=== PATIENT | male | born 1995 ===

== ENCOUNTER 2020-02-23 14:09 | Observation (INO) | payer OTHER, MEDICAID, SELFPAY ==
[2020-02-23] VITALS (42 sets, daily range): BP systolic 101–155; BP diastolic 54–99; PULSE 83–121; RESP 12–31; TEMP 36.3–36.7; O2SAT 89–100; BMI 29.8
--- NOTE | 2020-02-23 14:16 | ED_ITS ---
HPI - Syncope General Chief Complaint: Toxicology Problem Stated Complaint: Passed out Time Seen by Provider: 02/23/20 14:16 History of Present Illness HPI narrative: CC: Found unresponsive and unconscious. HPI: The patient is a 24-year-old male who was brought in by EMS after he was found unconscious and unresponsive. The patient woke up and was mildly cooperative after being administered Narcan. In the emergency department the patient was very guarded would not say exactly what he was on. He told the nurse that he was on and taking cocaine. He was told that cocaine does not respond to Narcan but would not state what else he was on. The patient is uncooperative. The patient then became somnolent and obtunded and would not answer any further questions. The patient is being treated for an acute toxic overdose of Street medications. The patient admitted to the nurse that he uses cocaine. Additional in for higuera from the paramedics is that the patient was locked in the back of a car. In order to get to the patient and get the patient out of the car they had to break the door off the car because the doors would not open. After the doors were removed the patient was administered 3 mg of Narcan intranasally which place the patient in a semi aroused condition. All of this occurred in a parking lot at 1 of the [facility]. Related Data Home Medications Medication Instructions Recorded Confirmed No Known Home Medications 02/23/20 02/23/20 Allergies Allergy/AdvReac Type Severity Reaction Status Date / Time No Known Drug Allergies Allergy Verified 02/23/20 14:19 Review of Systems Review of Systems Narrative: Because of the patient's current condition and drugs states the patient is unable to provide any review of systems at this time. Patient History Social History Smoking Status: Current every day smoker Exam Narrative Exam Narrative: PHYSICAL EXAM: CONSTITUTIONAL: The patient is obtunded and only responds to noxious stimuli when administered Narcan. HEAD: AT/NC EENT: miotic and pinpoint, conjunctiva are injected. NOSE:No epistaxis or nasal drainage MOUTH:Does not follow directions and open her mouth. NECK: Supple, no obvious JVD, Trachea is midline without stridor, no palpable LN. THORAX: No deformity, retractions, chest wall tenderness. LUNGS: Inspiratory crackles with diffuse expiratory rhonchi no wheeze HEART: Regular rhythm without mumur. ABDOMEN: Soft, non-tender, no guarding , rebound, rigidity or palpable mass. EXTREMITIES: No edema, deformity, tenderness or cyanosis. SKIN: No rash, bruising, petechiae or purpura. NEURO: The patient is a ton did and responds only to noxious stimuli. He moves all 4 extremities. Cranial nerves appear to be symmetrical with no focal facial asymmetry. Initial Vital Signs Initial Vital Signs: Vital Signs Temperature 98.1 F 02/23/20 14:10 Pulse Rate 118 H 02/23/20 14:10 Respiratory Rate 20 02/23/20 14:10 Blood Pressure 149/95 H 02/23/20 14:10 Pulse Oximetry 94 02/23/20 14:10 Course Course Course Narrative: 1749: The patient continues to be somnolent. Will recheck the patient's arterial blood gases and I will call the hospitalist to get the patient admitted observation status. 1810: Patient continues to be very somnolent but arousable is not waking up. The patient's chest x-ray revealed; IMPRESSION: Limited portable chest examination, without a significant cardiopulmonary abnormality identified. -- the patient's CT of his head revealed: IMPRESSION: Normal noncontrast head CT. Dictated by: Rakesh Max M.D. on 02/23/2020 at 15:18 Approved by: Rakesh Max M.D. on 02/23/2020 at 15:18 The patient's repeat arterial blood gases revealed a pH is 7.296 a pCO2 of 56.9 a PO2 of 81 and an oxygen saturation 94%. 1848: The patient is waking up but is not coherent. He does not answer the questions. He knows that he is at the [facility] but does not know what happen or is refusing to tell us. He states that he was just taking Xanax. He has not provided us with a urine to evaluate for the drugs that he has taken. He speaks with a slurred speech. Orders Ordered: ED Orders 02/23/20 14:13 Acetaminophen Stat Complete Blood Count AUTO DIFF Stat Comprehensive Metabolic Panel Stat Ethanol (ETOH) Stat Magnesium Stat Salicylate Stat Thyroid Stimulating Hormone Stat Troponin & CK Cardiac Panel Stat 02/23/20 14:17 EKG-12 Lead Stat 02/23/20 14:21 XR chest 1V Stat 02/23/20 14:22 CT head/brain wo con Stat 02/23/20 14:35 Arterial Blood Gas Stat 02/23/20 18:01 Arterial Blood Gas Stat 02/23/20 18:58 Urinalysis and Microscopic Stat Urine Drug Screen, Rapid Stat Naloxone HCl 2 mg/ Sodium (Chloride) 500 mls @ 62.5 mls/hr IV TITRATE YAJAIRA; Prot ocol Last Titration: 02/23/20 17:41 Dose: 0.29 mg/hr, 72 mls/hr Documented by: Titration: 02/23/20 15:23 Dose: 0.28 mg/hr, 70 mls/hr Documented by: Admin: 02/23/20 15:04 Dose: 0.25 mg/hr, 62.5 mls/hr Documented by: YOVANI Sodium Chloride (Normal Saline 0.9%) 1,000 mls @ 150 mls/hr IV CONT YAJAIRA Sodium Chloride (Normal Saline 0.9%) 1,000 mls @ 1,000 mls/hr IV BOLUS ONE Stop: 02/23/20 20:02 Last Admin: 02/23/20 19:04 Dose: 1,000 mls/hr Documented by: YOVANI Discontinued Medications Sodium Chloride (Normal Saline 0.9%) 1,000 mls @ 1,000 mls/hr IV BOLUS ONE Stop: 02/23/20 15:16 Last Infusion: 02/23/20 17:41 Dose: 0 mls/hr Documented by: Admin: 02/23/20 15:05 Dose: 1,000 mls/hr Documented by: YOVANI Naloxone HCl (Narcan) 1 mg IV NOW ONE Stop: 02/23/20 14:27 Last Admin: 02/23/20 15:38 Dose: Not Given Documented by: RAYMON Vital Signs Vital signs: Vital Signs - 8 hr 02/23/20 14:10 02/23/20 14:31 02/23/20 14:45 Temperature 98.1 F Pulse Rate 118 H 99 H 107 H Respiratory Rate 20 26 H Blood Pressure 149/95 H 121/79 Pulse Oximetry 94 89 L 100 02/23/20 15:00 02/23/20 15:15 02/23/20 15:30 Temperature Pulse Rate 96 H 96 H 89 Respiratory Rate Blood Pressure 117/60 112/57 L 112/55 L Pulse Oximetry 95 95 95 02/23/20 15:45 02/23/20 16:09 02/23/20 16:15 Temperature Pulse Rate 95 H 83 94 H Respiratory Rate 12 Blood Pressure 109/59 L Pulse Oximetry 93 100 93 02/23/20 16:30 02/23/20 16:45 02/23/20 17:00 Temperature Pulse Rate 93 H 95 H 97 H Respiratory Rate 18 Blood Pressure Pulse Oximetry 92 91 02/23/20 17:15 02/23/20 17:24 02/23/20 17:30 Temperature Pulse Rate 97 H 97 H 98 H Respiratory Rate Blood Pressure 104/55 L 112/55 L Pulse Oximetry 92 93 93 02/23/20 17:45 02/23/20 18:00 02/23/20 18:15 Temperature Pulse Rate 97 H 109 H 97 H Respiratory Rate Blood Pressure 112/56 L 101/54 L 121/72 Pulse Oximetry 94 92 97 02/23/20 18:30 02/23/20 18:45 02/23/20 19:00 Temperature Pulse Rate 94 H 99 H 99 H Respiratory Rate 18 18 Blood Pressure 128/86 128/71 148/74 H Pulse Oximetry 99 98 98 MDM - Syncope Medical Records Attestation: I reviewed the patient's medical records. Lab Data Attestation: I reviewed the patient's lab results. Result diagrams: 02/23/20 14:13 02/23/20 14:13 Labs: Lab Results 02/23/20 02/23/20 02/23/20 Range/Units 14:13 14:13 14:13 WBC 10.4 (4.5-11.0) X10^3/uL RBC 5.27 (4.5-5.9) X10^6/uL Hgb 17.1 (13.5-17.5) g/dL Hct 49.8 (41-53) % MCV 94.6 (80-100) fL MCH 32.4 (26-34) PG MCHC 34.3 (30-36) % RDW 13.1 (11.6-14.8) % Plt Count 187 (150-400) X10^3/uL Neut % (Auto) 60.7 (50-75) % Lymph % (Auto) 27.6 (25-40) % [place] % (Auto) 7.4 (3-14) % Eos % (Auto) 3.8 (2-4) % Baso % (Auto) 0.5 (0-2) % Neut # (Auto) 6300 (0081-0682) /uL Lymph # (Auto) 2900 (8430-2828) /uL [place] # (Auto) 800 (0-900) /uL Eos # (Auto) 400 (0-450) /uL Baso # (Auto) 100 (0-100) /uL ABG pH (7.35-7.45) ABG pCO2 (35-45) mmHg ABG pO2 (80-100) mmHg ABG HCO3 (22-26) mmol/L ABG Total CO2 (21-31) mmol/L ABG O2 Saturation (95-100) % ABG Base Excess (-2-2) mmol/L FiO2 Sodium 138 (137-145) mmol/L Potassium 4.3 (3.4-5.1) mmol/L Chloride 104 (98-107) mmol/L Carbon Dioxide 24 (22-32) mmol/L BUN 15 (9-20) mg/dL Creatinine 0.79 (0.66-1.25) mg/dL Estimated GFR > 60.0 (>60) mL/min BUN/Creatinine Ratio 19.0 (6-22) Glucose 111 H (70-100) mg/dL Calcium 9.9 (8.4-10.2) mg/dL Magnesium 2.2 (1.6-2.3) mg/dL Total Bilirubin 0.8 (0.2-1.3) mg/dL AST 38 (17-59) IU/L ALT 34 (<50) IU/L Alkaline Phosphatase 59 (38-126) U/L Total Creatine Kinase 109 (55-170) U/L CK-MB (CK-2) 1.75 (<2.37) ng/mL CK-MB (CK-2) Rel Index 1.6 (1.5-5.0) % Troponin I < 0.012 (0.01-0.034) ng/mL Total Protein 7.9 (6.3-8.2) g/dL Albumin 4.7 (3.5-5.0) g/dL Globulin 3.2 (1.7-4.1) g/dL Albumin/Globulin Ratio 1.5 (1.0-2.8) TSH 4.65 (0.47-4.68) uIU/mL Urine Color Urine Appearance Urine pH (4.5-8.0) Ur Specific [place] (1.000-1.035) Urine Protein (Negative) Urine Glucose (UA) (Negative) g/dL Urine Ketones (NEGATIVE) Urine Occult Blood (Negative) Urine Nitrate (Negative) Urine Bilirubin (NEGATIVE) Urine Urobilinogen (0.2) E.U./dL Ur Leukocyte Esterase (NEGATIVE) Urine RBC (0-5/HPF) Urine WBC (0-5/HPF) Urine Bacteria (None) Hyaline Casts (None) Ur Culture Indicated? Salicylates < 1.0 (<20) mg/dL U Opiates 300ng/mL cut (Negative) Ur Oxycodone Screen (Negative) Urine Methadone Screen (Negative) Acetaminophen < 10 L (10-30) ug/mL Ur Barbiturates Screen (Negative) U Tricyclic Antidepress (Negative) Ur Phencyclidine Scrn (Negative) Ur Amphetamines Screen (Negative) U Methamphetamines Scrn (Negative) Ur MDMA Scrn (Ecstasy) (Negative) U Benzodiazepines Scrn (Negative) Urine Cocaine Screen (Negative) U Marijuana (THC) Screen (Negative) Ethyl Alcohol < 10 ( - 10) mg/dL 02/23/20 02/23/20 02/23/20 Range/Units 14:35 18:01 18:58 WBC (4.5-11.0) X10^3/uL RBC (4.5-5.9) X10^6/uL Hgb (13.5-17.5) g/dL Hct (41-53) % MCV (80-100) fL MCH (26-34) PG MCHC (30-36) % RDW (11.6-14.8) % Plt Count (150-400) X10^3/uL Neut % (Auto) (50-75) % Lymph % (Auto) (25-40) % [place] % (Auto) (3-14) % Eos % (Auto) (2-4) % Baso % (Auto) (0-2) % Neut # (Auto) (7929-6496) /uL Lymph # (Auto) (7696-9203) /uL [place] # (Auto) (0-900) /uL Eos # (Auto) (0-450) /uL Baso # (Auto) (0-100) /uL ABG pH 7.29 L* 7.30 L (7.35-7.45) ABG pCO2 58.3 H 56.9 H (35-45) mmHg ABG pO2 80 81 (80-100) mmHg ABG HCO3 28 H 28 H (22-26) mmol/L ABG Total CO2 30 29 (21-31) mmol/L ABG O2 Saturation 94 L 94 L (95-100) % ABG Base Excess 2.0 1.0 (-2-2) mmol/L FiO2 21 21 Sodium (137-145) mmol/L Potassium (3.4-5.1) mmol/L Chloride (98-107) mmol/L Carbon Dioxide (22-32) mmol/L BUN (9-20) mg/dL Creatinine (0.66-1.25) mg/dL Estimated GFR (>60) mL/min BUN/Creatinine Ratio (6-22) Glucose (70-100) mg/dL Calcium (8.4-10.2) mg/dL Magnesium (1.6-2.3) mg/dL Total Bilirubin (0.2-1.3) mg/dL AST (17-59) IU/L ALT (<50) IU/L Alkaline Phosphatase (38-126) U/L Total Creatine Kinase (55-170) U/L CK-MB (CK-2) (<2.37) ng/mL CK-MB (CK-2) Rel Index (1.5-5.0) % Troponin I (0.01-0.034) ng/mL Total Protein (6.3-8.2) g/dL Albumin (3.5-5.0) g/dL Globulin (1.7-4.1) g/dL Albumin/Globulin Ratio (1.0-2.8) TSH (0.47-4.68) uIU/mL Urine Color Yellow Urine Appearance Clear Urine pH 6.0 (4.5-8.0) Ur Specific [place] 1.025 (1.000-1.035) Urine Protein 1+ H (Negative) Urine Glucose (UA) Negative (Negative) g/dL Urine Ketones Negative (NEGATIVE) Urine Occult Blood Negative (Negative) Urine Nitrate Negative (Negative) Urine Bilirubin Negative (NEGATIVE) Urine Urobilinogen 2.0 H (0.2) E.U./dL Ur Leukocyte Esterase Negative (NEGATIVE) Urine RBC None seen (0-5/HPF) Urine WBC None seen (0-5/HPF) Urine Bacteria None seen (None) Hyaline Casts 0-1/lpf (None) Ur Culture Indicated? Cult not indicated Salicylates (<20) mg/dL U Opiates 300ng/mL cut (Negative) Ur Oxycodone Screen (Negative) Urine Methadone Screen (Negative) Acetaminophen (10-30) ug/mL Ur Barbiturates Screen (Negative) U Tricyclic Antidepress (Negative) Ur Phencyclidine Scrn (Negative) Ur Amphetamines Screen (Negative) U Methamphetamines Scrn (Negative) Ur MDMA Scrn (Ecstasy) (Negative) U Benzodiazepines Scrn (Negative) Urine Cocaine Screen (Negative) U Marijuana (THC) Screen (Negative) Ethyl Alcohol ( - 10) mg/dL 02/23/20 Range/Units 18:58 WBC (4.5-11.0) X10^3/uL RBC (4.5-5.9) X10^6/uL Hgb (13.5-17.5) g/dL Hct (41-53) % MCV (80-100) fL MCH (26-34) PG MCHC (30-36) % RDW (11.6-14.8) % Plt Count (150-400) X10^3/uL Neut % (Auto) (50-75) % Lymph % (Auto) (25-40) % [place] % (Auto) (3-14) % Eos % (Auto) (2-4) % Baso % (Auto) (0-2) % Neut # (Auto) (7782-1708) /uL Lymph # (Auto) (5607-2717) /uL [place] # (Auto) (0-900) /uL Eos # (Auto) (0-450) /uL Baso # (Auto) (0-100) /uL ABG pH (7.35-7.45) ABG pCO2 (35-45) mmHg ABG pO2 (80-100) mmHg ABG HCO3 (22-26) mmol/L ABG Total CO2 (21-31) mmol/L ABG O2 Saturation (95-100) % ABG Base Excess (-2-2) mmol/L FiO2 Sodium (137-145) mmol/L Potassium (3.4-5.1) mmol/L Chloride (98-107) mmol/L Carbon Dioxide (22-32) mmol/L BUN (9-20) mg/dL Creatinine (0.66-1.25) mg/dL Estimated GFR (>60) mL/min BUN/Creatinine Ratio (6-22) Glucose (70-100) mg/dL Calcium (8.4-10.2) mg/dL Magnesium (1.6-2.3) mg/dL Total Bilirubin (0.2-1.3) mg/dL AST (17-59) IU/L ALT (<50) IU/L Alkaline Phosphatase (38-126) U/L Total Creatine Kinase (55-170) U/L CK-MB (CK-2) (<2.37) ng/mL CK-MB (CK-2) Rel Index (1.5-5.0) % Troponin I (0.01-0.034) ng/mL Total Protein (6.3-8.2) g/dL Albumin (3.5-5.0) g/dL Globulin (1.7-4.1) g/dL Albumin/Globulin Ratio (1.0-2.8) TSH (0.47-4.68) uIU/mL Urine Color Urine Appearance Urine pH (4.5-8.0) Ur Specific [place] (1.000-1.035) Urine Protein (Negative) Urine Glucose (UA) (Negative) g/dL Urine Ketones (NEGATIVE) Urine Occult Blood (Negative) Urine Nitrate (Negative) Urine Bilirubin (NEGATIVE) Urine Urobilinogen (0.2) E.U./dL Ur Leukocyte Esterase (NEGATIVE) Urine RBC (0-5/HPF) Urine WBC (0-5/HPF) Urine Bacteria (None) Hyaline Casts (None) Ur Culture Indicated? Salicylates (<20) mg/dL U Opiates 300ng/mL cut Negative (Negative) Ur Oxycodone Screen Negative (Negative) Urine Methadone Screen Negative (Negative) Acetaminophen (10-30) ug/mL Ur Barbiturates Screen Negative (Negative) U Tricyclic Antidepress Negative (Negative) Ur Phencyclidine Scrn Negative (Negative) Ur Amphetamines Screen Positive H (Negative) U Methamphetamines Scrn Positive H (Negative) Ur MDMA Scrn (Ecstasy) Positive H (Negative) U Benzodiazepines Scrn Positive H (Negative) Urine Cocaine Screen Positive H (Negative) U Marijuana (THC) Screen Positive H (Negative) Ethyl Alcohol ( - 10) mg/dL ABG Data ABG results: The patient's arterial blood gases on room air revealed a pH is 7.29 to a pCO2 of 58.3 a PO2 of 80 and a bicarb of 28.1 total CO2 of 30. Sodium 137 potassium 3.9. The patient will be placed on a pCO2 monitor. Attestation: I personally reviewed and interpreted this ABG as follows: ECG Data Attestation: I personally reviewed and interpreted this ECG as follows: Interpretation: Patient's EKG obtained at 2:40 p.m. revealed a sinus tachycardia with a ventricular rate of 104. His intervals appear within normal limits p.r. interval is 160 milliseconds. QRS duration is 88 milliseconds. QTC is 441 milliseconds. [place] is normal. The patient has been prominent T-waves with early repolarization in leads V3 V4 V5 and V6. The patient's T-waves are upright in V1 inverted in lead III. There are no other acute diagnostic ST segment changes noted. Discharge Plan Departure Patient Disposition: Admitted as Observation Clinical Impression: Polysubstance abuse Altered mental status Qualifiers: Altered mental status type: delirium Qualified Code(s): R41.0 - Disorientation, unspecified Opiate dependence Qualifiers: Substance use status: with unspecified opioid-induced disorder Qualified Code(s): F11.29 - Opioid dependence with unspecified opioid-induced disorder Admit Date/Time: 02/23/20 19:39 Admit Provider: Heath Thibodeaux
--- NOTE | 2020-02-23 14:21 | DI.RAD.S_ITS ---
PROCEDURE: XR CHEST 1V INDICATIONS: obtunded, suspected drug OD r/o aspiration TECHNIQUE: One view of the chest was acquired. COMPARISON: None. FINDINGS: Surgical changes and devices: None. Lungs and pleura: An incomplete inspiratory result is noted, causing a crowded appearance to the lung markings. No focal infiltrates are seen. No pneumothorax or significant pleural effusions are seen. Mediastinum: Mediastinal contours appear normal. Heart size is normal. Bones and chest wall: No suspicious bony lesions. Overlying soft tissues appear unremarkable. IMPRESSION: Limited portable chest examination, without a significant cardiopulmonary abnormality identified. Dictated by: Rakesh Max M.D. on 02/23/2020 at 14:57 Approved by: Rakesh Max M.D. on 02/23/2020 at 14:57
--- NOTE | 2020-02-23 14:22 | DI.CT.S_ITS ---
PROCEDURE: CT HEAD/BRAIN WO CON INDICATIONS: suspected drug OD, obtunded, TECHNIQUE: Noncontrast 4.5 mm thick angled axial sections acquired from the foramen magnum to the vertex, with coronal and sagittal reformats. For radiation dose reduction, the following was used: automated exposure control, adjustment of mA and/or kV according to patient size. COMPARISON: [facility], , XR CHEST 1V, 02/23/2020, 15:30. FINDINGS: Image quality: Excellent. CSF spaces: Basal cisterns are patent. No extra-axial fluid collections. Ventricles are normal in size and shape. Brain: No midline shift. No intracranial masses or hemorrhage. [place]-white matter interface is normal. Skull and face: Calvarium and visualized facial bones are intact, without suspicious lesions. Sinuses: Visualized sinuses and mastoids are clear. IMPRESSION: Normal noncontrast head CT. Dictated by: Rakesh Max M.D. on 02/23/2020 at 15:18 Approved by: Rakesh Max M.D. on 02/23/2020 at 15:18
[2020-02-23] MEDS: NALOXONE 1 MG/ML SYRINGE 2 MG (14:28)
[2020-02-23 14:30] LABS: Add Manual Diff / Slide Review NO; Basophils Absolute Auto 100 /uL (0-100); Basophils Percent Auto 0.5 % (0-2); Eosinophils Absolute Auto 400 /uL (0-450); Eosinophils Percent Auto 3.8 % (2-4); Hematocrit 49.8 % (41-53); Hemoglobin 17.1 g/dL (13.5-17.5); Lymphocytes Absolute Auto 2900 /uL (1100-4500); Lymphocytes Percent Auto 27.6 % (25-40); Mean Corpuscular HGB Conc 34.3 % (30-36); Mean Corpuscular Hemoglobin 32.4 PG (26-34); Mean Corpuscular Volume 94.6 fL (80-100); Monocytes Absolute Auto 800 /uL (0-900); Monocytes Percent Auto 7.4 % (3-14); Neutrophils Absolute Auto 6300 /uL (1500-7000); Neutrophils Percent Auto 60.7 % (50-75); Platelet Count 187 X10^3/uL (150-400); Red Blood Cell Count 5.27 X10^6/uL (4.5-5.9); Red Cell Distribution Width 13.1 % (11.6-14.8); White Blood Cell Count 10.4 X10^3/uL (4.5-11.0)
[2020-02-23 14:37] LABS: Acetaminophen < 10 ug/mL (10-30); Alanine Aminotransferase 34 IU/L (<50); Albumin 4.7 g/dL (3.5-5.0); Albumin Globulin Ratio 1.5 (1.0-2.8); Alkaline Phosphatase 59 U/L (38-126); Aspartate Aminotransferase 38 IU/L (17-59); Bilirubin Total 0.8 mg/dL (0.2-1.3); Blood Urea Nitrogen 15 mg/dL (9-20); Calcium 9.9 mg/dL (8.4-10.2); Carbon Dioxide 24 mmol/L (22-32); Chloride 104 mmol/L (98-107); Creatine Kinase 109 U/L (55-170); Estimated Glomerular Filt Rate > 60.0 mL/min (>60); Ethanol (ETOH) < 10 mg/dL; Globulin 3.2 g/dL (1.7-4.1); Glucose 111 mg/dL (70-100); HEMOLYSIS 42 (0-50); Magnesium 2.2 mg/dL (1.6-2.3); Potassium 4.3 mmol/L (3.4-5.1); Salicylate < 1.0 mg/dL (<20); Sodium 138 mmol/L (137-145); Total Protein 7.9 g/dL (6.3-8.2)
[2020-02-23 14:48] LABS: Troponin I < 0.012 ng/mL (0.01-0.034)
[2020-02-23 14:50] LABS: Fractionated Inspired Oxygen 21; HCO3 ABG 28 mmol/L (22-26); Oxygen Saturation ABG 94 % (95-100); PCO2 ABG 58.3 mmHg (35-45); PO2 ABG 80 mmHg (80-100); TCO2 ABG 30 mmol/L (21-31); pH ABG 7.29 (7.35-7.45)
[2020-02-23 14:51] LABS: CKMB % Relative Index 1.6 % (1.5-5.0); Creatine Kinase MB 1.75 ng/mL (<2.37)
[2020-02-23] MEDS: NALOXONE 2 MG in SODIUM CHLORIDE 0.9% 500 ML 62.5 ML IV ×2 (15:04→20:30)
[2020-02-23] MEDS: SODIUM CHLORIDE 0.9% 1,000 ML 1000 ML IV ×2 (15:05→19:04)
[2020-02-23 15:07] LABS: Thyroid Stimulating Hormone 4.65 uIU/mL (0.47-4.68)
--- NOTE | 2020-02-23 15:24 | PC.NURSE ---
Increased narcan to 70mL per Dr. Villeda Patient remains on all monitors including capnography
--- NOTE | 2020-02-23 16:20 | PC.NURSE ---
Patient aware of need for urine sample. Mom on the phone wanting information. Patient gives verbal consent to tell her that he is okay. I did update her. She says she wants to come in.
--- NOTE | 2020-02-23 17:11 | PC.NURSE ---
Attempt to get urine. Patient sleeping hard. Respirations even and unlabored. Appears in no acute distress. Monitors all remain in place with capnography.
[2020-02-23 18:13] LABS: Fractionated Inspired Oxygen 21; HCO3 ABG 28 mmol/L (22-26); Oxygen Saturation ABG 94 % (95-100); PCO2 ABG 56.9 mmHg (35-45); PO2 ABG 81 mmHg (80-100); TCO2 ABG 29 mmol/L (21-31)
[2020-02-23 19:18] LABS: Bacteria Urine None Seen; RBC Urine None Seen (0-5/HPF); WBC Urine None Seen (0-5/HPF)
[2020-02-23 19:22] LABS: Appearance Urine UA CLEAR; Bilirubin Urine UA NEGATIVE (NEGATIVE); Color Urine UA YELLOW; Glucose Urine UA NEGATIVE (Negative); Ketones Urine UA NEGATIVE (NEGATIVE); Leukocyte Esterase Urine UA NEGATIVE (NEGATIVE); Nitrite Urine UA NEGATIVE (Negative); Occult Blood Urine UA NEGATIVE (Negative); Protein Urine UA 1+ (Negative); Specific Gravity Urine UA 1.025 (1.000-1.035)
[2020-02-23 19:25] LABS: UR Morphine/Opiate cutoff 300 Negative (Negative); Ur Creatinine Normal (Normal); Ur Specific Gravity Normal (Normal); Urine Amphetamines Positive (Negative); Urine Barbiturates Negative (Negative); Urine Benzodiazepines Positive (Negative); Urine Cocaine Positive (Negative); Urine MDMA Positive (Negative); Urine Methadone Negative (Negative); Urine Methamphetamines Positive (Negative); Urine Oxycodone Negative (Negative); Urine Phencyclidine Negative (Negative); Urine Tetrahydrocannabinol Positive (Negative); Urine Tricyclic Antidepressant Negative (Negative); Urine pH Normal (Normal)
[2020-02-23 19:31] LABS: Culture Indicated Urine Cult Not Indicated; Hyaline Casts Urine 0-1/LPF
[2020-02-23 22:13] LABS: COVID19 -Nasal RAPID Negative (Negative)
[2020-02-23] MEDS: SODIUM CHLORIDE 0.9% 1,000 ML 125 ML IV (22:37)
[2020-02-23] MEDS: HEPARIN 5,000 UNIT/ML VIAL 5000 UNIT SUBCUT (22:41)
--- NOTE | 2020-02-23 23:30 | PM.HP.1 ---
History of Present Illness History of Present Illness Date Patient Seen: 02/23/20 Time Patient Seen: 21:20 Chief complaint: Passed out Narrative: Mr. Josafat Juares is a 24-year-old male patient with a past medical history of asthma for presents to the ER via EMS after being found unresponsive and unconscious in his vehicle. The patient had to be extricated from his vehicle by fire personnel. The patient was administered nasal Narcan 3 mg total with modest arousal with patient. In the ER the patient was uncooperative with history and is reluctant to disclose what substances he took. At time of encounter on the acute care floor the patient is presently on our can drip and is awake and conversant. His mother is at bedside and asked to speak with the patient privately. The patient discloses that he has been taking multiple recreational pharmaceuticals for 2 days. He describes he started drinking alcohol and that led to ?things getting out of hand.? He states remembering a few things urine there over the last 2 days. He provides a history of prior drug use per reports his last episode was 4 years ago. He denies any thoughts of self-harm or intent on self injury. He denies any recent illness, fevers or chills, known COVID-19 exposures. Denies complaints of headache or dizziness, nasal congestion or sore throat. He has no chest pain and relates history of intermittent right-sided sharp chest pain lasting a few minutes but nothing currently. He does endorse a history of asthma I received prescription for an inhaler from a [facility] and has no regular PCP. He reports using inhaler approximately 3 times per week. He denies current complaints of shortness of breath cough and has no wheezing. He denies epigastric pain, abdominal pain, nausea or vomiting. Cannot recall his last bowel movement. He reports no difficulty urinating. The patient is typically independent in all ADLs. Upon arrival to the ER the patient is afebrile with temperature 98.1?, heart rate of 118, blood pressure 149/95, respiratory rate of 20 with his known oxygen saturation 94% on room air. Chest x-ray was obtained which is unremarkable with no acute cardiopulmonary pathology, a head CT which is also unremarkable. On laboratory analysis the patient has white count of 10.4, hemoglobin of 17.1, hematocrit of 49.8 and platelets of 187. His electrolytes are all within normal limits is a magnesium 2.2. His BUN is 15 and creatinine 0.79. Liver function tests are all within normal limits, his total CK is 109, troponin is negative, TSH is 4.65. Of ABG reveals a pH of 7.30, pCO2 of 56.9, bicarbonate of 28 with base excess of +1. Urinalysis is positive for 1+ protein and negative for ketones nitrates leukocyte esterase or WBCs. On urinary tox screen the patient is found positive for amphetamine/methamphetamine, ecstasy, benzodiazepines, cocaine, THC. Alcohol is less than 10. In the ER the patient is given normal saline 2 L and administered initial dose of Narcan with transient improvement insert on Narcan infusion. The patient is admitted to the medicine service for toxic encephalopathy with acute respiratory failure. Patient History Medical History Mild persistent asthma (Acute) Substance abuse (Acute) Surgical History No significant past surgical history (Acute) Family & Social History Family history unavailable: No (Patient is unable or unwilling to provide social or family history) Social History: household members family Prior Living Arrangements House Safety & Behavioral: Feels Safe in Current Yes Environment Been Physically Hurt or No Threatened By a Person Suicidal Ideation Description None Suicide Plan Description No Plan Tobacco & Substance use: Tobacco type cigarettes,cannabis/marijuana Smoking Status Current every day smoker Smoking packs per day 0.5 alcohol intake current alcohol intake frequency a few times a week Substance Use Type marijuana,crack/cocaine,sedatives Meds Home Medications and Allergies Home Medications Medication Instructions Recorded Confirmed Type albuterol sulfate 2 puff INHALATION Q4-6H PRN 02/24/20 02/24/20 History Allergies Allergy/AdvReac Type Severity Reaction Status Date / Time No Known Drug Allergies Allergy Verified 02/23/20 14:19 Review of Systems Review of Systems ROS: Yes All systems reviewed with the patient and are negative except as otherwise documented Exam Vital Signs (past 8 hours): - 02/23/20 15:45 02/23/20 16:09 02/23/20 16:15 Temperature Pulse Rate 95 H 83 94 H Respiratory Rate 12 Blood Pressure 109/59 L Pulse Oximetry 93 100 93 02/23/20 16:30 02/23/20 16:45 02/23/20 17:00 Temperature Pulse Rate 93 H 95 H 97 H Respiratory Rate 18 Blood Pressure Pulse Oximetry 92 91 02/23/20 17:15 02/23/20 17:24 02/23/20 17:30 Temperature Pulse Rate 97 H 97 H 98 H Respiratory Rate Blood Pressure 104/55 L 112/55 L Pulse Oximetry 92 93 93 02/23/20 17:45 02/23/20 18:00 02/23/20 18:15 Temperature Pulse Rate 97 H 109 H 97 H Respiratory Rate Blood Pressure 112/56 L 101/54 L 121/72 Pulse Oximetry 94 92 97 02/23/20 18:30 02/23/20 18:45 02/23/20 19:00 Temperature Pulse Rate 94 H 99 H 99 H Respiratory Rate 18 18 Blood Pressure 128/86 128/71 148/74 H Pulse Oximetry 99 98 98 02/23/20 19:15 02/23/20 19:30 02/23/20 19:31 Temperature Pulse Rate 102 H 103 H 106 H Respiratory Rate Blood Pressure 149/73 H 142/69 H Pulse Oximetry 99 99 99 02/23/20 19:45 02/23/20 19:46 02/23/20 20:00 Temperature Pulse Rate 102 H 106 H 118 H Respiratory Rate Blood Pressure 155/93 H 142/88 H Pulse Oximetry 99 99 100 02/23/20 20:15 02/23/20 20:18 02/23/20 20:30 Temperature 97.3 F L Pulse Rate 108 H 115 H 121 H Respiratory Rate 24 Blood Pressure 141/87 H 134/99 H 148/78 H Pulse Oximetry 99 99 99 02/23/20 20:58 02/23/20 21:00 02/23/20 21:15 Temperature Pulse Rate 109 H 108 H 108 H Respiratory Rate 24 Blood Pressure Pulse Oximetry 98 99 98 02/23/20 21:30 02/23/20 21:40 02/23/20 21:45 Temperature Pulse Rate 109 H 108 H 108 H Respiratory Rate 28 H 20 25 H Blood Pressure Pulse Oximetry 99 98 99 02/23/20 22:00 02/23/20 22:15 02/23/20 22:30 Temperature Pulse Rate 108 H 111 H 88 Respiratory Rate 22 25 H 21 Blood Pressure Pulse Oximetry 97 95 97 02/23/20 22:45 02/23/20 23:00 02/23/20 23:15 Temperature Pulse Rate 97 H 103 H 109 H Respiratory Rate 27 H 27 H 31 H Blood Pressure Pulse Oximetry 98 98 98 Oxygen Delivery Method Room Air Oxygen Flow Rate 0 Narrative Exam Narrative: GENERAL APPEARANCE: well developed, well nourished, restless, mild dyskinesia HEENT: Atraumatic, pupils sluggish, conjunctiva clear, EOMs intact, no sinus tenderness to percussion, no rhinorrhea, mucous membranes are moist and pink without lesions or exudate. NECK/THYROID: neck supple, no JVD, no carotid bruit, no thyromegaly, trachea midline. LYMPH NODES: no cervical or supraclavicular lymphadenopathy. SKIN: [place], warm and dry, no visible lesions, rashes, ulcerations or petechiae. HEART: regular rate and rhythm, S1-S2, no murmur, no rubs or gallops, brisk capillary refill, no edema LUNGS: clear to auscultation bilaterally, no coarseness crackles or wheezing, no cough present CHEST: Symmetrical movement, no accessory muscle use, good tidal volume. ABDOMEN: Soft, no distention, no abdominal tenderness, no guarding or peritoneal signs, no organomegaly, no flank or suprapubic tenderness, active bowel tones. BACK: Normal curvature, nontender to palpation, no CVA tenderness on percussion EXTREMITIES: moves all extremities, strength is 5/5 and symmetrical, no deformities or joint effusions. NEUROLOGIC: AAO x person place and time, slurred speech, mild dyskinesia without focal motor deficits or lateralizing symptoms, sensation intact to light touch, hearing grossly normal to speech. PSYCH: Mildly restless, animated, cooperative. Objective Labs Result Diagrams: 02/23/20 14:13 02/23/20 14:13 Labs: Laboratory Results - last 24 hr 02/23/20 02/23/20 02/23/20 14:13 14:13 14:13 WBC 10.4 RBC 5.27 Hgb 17.1 Hct 49.8 MCV 94.6 MCH 32.4 MCHC 34.3 RDW 13.1 Plt Count 187 Neut % (Auto) 60.7 Lymph % (Auto) 27.6 [place] % (Auto) 7.4 Eos % (Auto) 3.8 Baso % (Auto) 0.5 Neut # (Auto) 6300 Lymph # (Auto) 2900 [place] # (Auto) 800 Eos # (Auto) 400 Baso # (Auto) 100 ABG pH ABG pCO2 ABG pO2 ABG HCO3 ABG Total CO2 ABG O2 Saturation ABG Base Excess FiO2 Sodium 138 Potassium 4.3 Chloride 104 Carbon Dioxide 24 BUN 15 Creatinine 0.79 Estimated GFR > 60.0 BUN/Creatinine Ratio 19.0 Glucose 111 H Calcium 9.9 Magnesium 2.2 Total Bilirubin 0.8 AST 38 ALT 34 Alkaline Phosphatase 59 Total Creatine Kinase 109 CK-MB (CK-2) 1.75 CK-MB (CK-2) Rel Index 1.6 Troponin I < 0.012 Total Protein 7.9 Albumin 4.7 Globulin 3.2 Albumin/Globulin Ratio 1.5 TSH 4.65 Urine Color Urine Appearance Urine pH Ur Specific [place] Urine Protein Urine Glucose (UA) Urine Ketones Urine Occult Blood Urine Nitrate Urine Bilirubin Urine Urobilinogen Ur Leukocyte Esterase Urine RBC Urine WBC Urine Bacteria Hyaline Casts Ur Culture Indicated? Nasal Screen MRSA (PCR) Salicylates < 1.0 U Opiates 300ng/mL cut Ur Oxycodone Screen Urine Methadone Screen Acetaminophen < 10 L Ur Barbiturates Screen U Tricyclic Antidepress Ur Phencyclidine Scrn Ur Amphetamines Screen U Methamphetamines Scrn Ur MDMA Scrn (Ecstasy) U Benzodiazepines Scrn Urine Cocaine Screen U Marijuana (THC) Screen Ethyl Alcohol < 10 COVID-19 PCR 02/23/20 02/23/20 02/23/20 14:35 18:01 18:58 WBC RBC Hgb Hct MCV MCH MCHC RDW Plt Count Neut % (Auto) Lymph % (Auto) [place] % (Auto) Eos % (Auto) Baso % (Auto) Neut # (Auto) Lymph # (Auto) [place] # (Auto) Eos # (Auto) Baso # (Auto) ABG pH 7.29 L* 7.30 L ABG pCO2 58.3 H 56.9 H ABG pO2 80 81 ABG HCO3 28 H 28 H ABG Total CO2 30 29 ABG O2 Saturation 94 L 94 L ABG Base Excess 2.0 1.0 FiO2 21 21 Sodium Potassium Chloride Carbon Dioxide BUN Creatinine Estimated GFR BUN/Creatinine Ratio Glucose Calcium Magnesium Total Bilirubin AST ALT Alkaline Phosphatase Total Creatine Kinase CK-MB (CK-2) CK-MB (CK-2) Rel Index Troponin I Total Protein Albumin Globulin Albumin/Globulin Ratio TSH Urine Color Yellow Urine Appearance Clear Urine pH 6.0 Ur Specific [place] 1.025 Urine Protein 1+ H Urine Glucose (UA) Negative Urine Ketones Negative Urine Occult Blood Negative Urine Nitrate Negative Urine Bilirubin Negative Urine Urobilinogen 2.0 H Ur Leukocyte Esterase Negative Urine RBC None seen Urine WBC None seen Urine Bacteria None seen Hyaline Casts 0-1/lpf Ur Culture Indicated? Cult not indicated Nasal Screen MRSA (PCR) Salicylates U Opiates 300ng/mL cut Ur Oxycodone Screen Urine Methadone Screen Acetaminophen Ur Barbiturates Screen U Tricyclic Antidepress Ur Phencyclidine Scrn Ur Amphetamines Screen U Methamphetamines Scrn Ur MDMA Scrn (Ecstasy) U Benzodiazepines Scrn Urine Cocaine Screen U Marijuana (THC) Screen Ethyl Alcohol COVID-19 PCR 02/23/20 02/23/20 02/23/20 18:58 20:55 20:55 WBC RBC Hgb Hct MCV MCH MCHC RDW Plt Count Neut % (Auto) Lymph % (Auto) [place] % (Auto) Eos % (Auto) Baso % (Auto) Neut # (Auto) Lymph # (Auto) [place] # (Auto) Eos # (Auto) Baso # (Auto) ABG pH ABG pCO2 ABG pO2 ABG HCO3 ABG Total CO2 ABG O2 Saturation ABG Base Excess FiO2 Sodium Potassium Chloride Carbon Dioxide BUN Creatinine Estimated GFR BUN/Creatinine Ratio Glucose Calcium Magnesium Total Bilirubin AST ALT Alkaline Phosphatase Total Creatine Kinase CK-MB (CK-2) CK-MB (CK-2) Rel Index Troponin I Total Protein Albumin Globulin Albumin/Globulin Ratio TSH Urine Color Urine Appearance Urine pH Ur Specific [place] Urine Protein Urine Glucose (UA) Urine Ketones Urine Occult Blood Urine Nitrate Urine Bilirubin Urine Urobilinogen Ur Leukocyte Esterase Urine RBC Urine WBC Urine Bacteria Hyaline Casts Ur Culture Indicated? Nasal Screen MRSA (PCR) Negative for mrsa Salicylates U Opiates 300ng/mL cut Negative Ur Oxycodone Screen Negative Urine Methadone Screen Negative Acetaminophen Ur Barbiturates Screen Negative U Tricyclic Antidepress Negative Ur Phencyclidine Scrn Negative Ur Amphetamines Screen Positive H U Methamphetamines Scrn Positive H Ur MDMA Scrn (Ecstasy) Positive H U Benzodiazepines Scrn Positive H Urine Cocaine Screen Positive H U Marijuana (THC) Screen Positive H Ethyl Alcohol COVID-19 PCR Negative Assessment & Plan Assessment & Plan narrative: This is a 24-year-old male who is found unresponsive by EMS following extrication from a parked vehicle. Patient was initially response to Narcan in the field and on tox screen is found to be positive for polysubstance abuse. 1. Toxic metabolic encephalopathy, acute, present on admission, active. -patient reports scattered recall over the last 2 days during which time he has been taking multiple substances. Patient states he is not a regular user and his last use was 4 years ago. -urine tox screen is positive for amphetamines, methamphetamines, ecstasy, benzodiazepines, cocaine and marijuana. -patient continues to have slurred speech and dyskinesia but no lateralizing or or localizing symptoms. -patient will be NPO except ice chips related to dysarthria. -order neuro checks every 4 hours. 2. Polysubstance overdose, acute, present on admission, active. -patient reports using multiple recreational pharmaceuticals over the last 2 days with scattered recall of events. -patient given Narcan 3 mg nasally in the field with improvement in responsiveness, additional Narcan was given in the emergency room and started are can drip with improvement in patient's status. -the patient manifests dyskinesia, and restlessness with slurred speech. Patient denies intent on self-harm or injury. -the patient is admitted to the ICU for polysubstance overdose. -continue Narcan infusion and titrate to wean off. 3. Acute respiratory failure with hypercarbia, uncompensated respiratory acidosis with metabolic alkalosis, acute, present on admission, active. -respiratory acidosis with metabolic alkalosis related to hypoventilation and CO2 retention, VBG 7.30 pCO2 56.9, bicarb 28, base excess of +1, anion gap is 10. -respiratory status improves with Narcan IV and started on Narcan infusion in the ER and continued on admission. -will monitor respiratory status and signs of increasing CO2. 4. Mild persistent asthma, chronic, stable. -patient does provide a history of asthma and has been prescribed inhaler. -no acute exacerbation, patient without complaints shortness of breath or wheezing. Breath sounds are clear on auscultation. -ordered albuterol MDI 2 puffs every 4 hours as needed for shortness of breath or wheezing. VTE prophylaxis: SCDs, heparin IV fluid: Normal saline 100 cc/hour Diet: NPO, will advance as patient improves. Code status: FULL CODE, patient's mother is a surrogate decision maker. The patient is admitted as an inpatient to the ICU for polysubstance overdose resulting in acute respiratory failure manage with Narcan drip. Critical care time: 60 minutes with greater than 50% of the time spent in direct [id number] with the patient. Scores GCS [place] coma scale eye opening: Spontaneous [place] coma scale verbal response: Orientated [place] coma scale motor response: Obey commands [place] coma scale total score: 15 Quality VTE Deep Vein Thrombosis/Pulmonary Embolism Present on Admission: No
[2020-02-24] VITALS (10 sets, daily range): BP systolic 126–146; BP diastolic 62–99; PULSE 73–98; RESP 16–29; TEMP 36.1–36.6; O2SAT 97–100
[2020-02-24] MEDS: NALOXONE 2 MG in SODIUM CHLORIDE 0.9% 500 ML 62.5 ML IV (00:38)
--- NOTE | 2020-02-24 01:57 | PC.NURSE ---
Pt arrived via gurney from ED, A/Ox2, mother at bedside, pt able to ambulate to bed, connected to monitor. VSS, narcan gtt infusing as ordered. Admission assessment complete, pt oriented to room and call light system. No further needs at this time, bed alarm on, curtains open for high visibility, bed low and locked, call light within reach, will continue to monitor.
[2020-02-24 05:30] LABS: BUN Creatinine Ratio 13.5 (6-22); Blood Urea Nitrogen 10 mg/dL (9-20); Calcium 9.4 mg/dL (8.4-10.2); Carbon Dioxide 26 mmol/L (22-32); Chloride 103 mmol/L (98-107); Estimated Glomerular Filt Rate > 60.0 mL/min (>60); Glucose 88 mg/dL (70-100); HEMOLYSIS 18 (0-50); Potassium 4.2 mmol/L (3.4-5.1); Sodium 135 mmol/L (137-145)
[2020-02-24] MEDS: SODIUM CHLORIDE 0.9% 1,000 ML 125 ML IV (05:32)
[2020-02-24 05:44] LABS: Add Manual Diff / Slide Review NO; Basophils Absolute Auto 0 /uL (0-100); Basophils Percent Auto 0.5 % (0-2); Eosinophils Absolute Auto 500 /uL (0-450); Eosinophils Percent Auto 5.8 % (2-4); Hemoglobin 16.9 g/dL (13.5-17.5); Lymphocytes Absolute Auto 2300 /uL (1100-4500); Lymphocytes Percent Auto 25.5 % (25-40); Mean Corpuscular HGB Conc 34.6 % (30-36); Mean Corpuscular Hemoglobin 32.4 PG (26-34); Mean Corpuscular Volume 93.8 fL (80-100); Monocytes Absolute Auto 700 /uL (0-900); Monocytes Percent Auto 8.1 % (3-14); Neutrophils Absolute Auto 5400 /uL (1500-7000); Neutrophils Percent Auto 60.1 % (50-75); Platelet Count 171 X10^3/uL (150-400); Red Blood Cell Count 5.22 X10^6/uL (4.5-5.9); Red Cell Distribution Width 12.9 % (11.6-14.8)
--- NOTE | 2020-02-24 08:32 | P.DS_ITS ---
History of Present Illness History of Present Illness Date Patient Seen: 02/24/20 Time Patient Seen: 08:32 Chief complaint: Passed out Narrative: As per LISA Hood: Mr. Josafat Juares is a 24-year-old male patient with a past medical history of asthma for presents to the ER via EMS after being found unresponsive and unconscious in his vehicle. The patient had to be extricated from his vehicle by fire personnel. The patient was administered nasal Narcan 3 mg total with modest arousal with patient. In the ER the patient was uncooperative with history and is reluctant to disclose what substances he took. At time of enco unter on the acute care floor the patient is presently on our can drip and is awake and conversant. His mother is at bedside and asked to speak with the patient privately. The patient discloses that he has been taking multiple recreational pharmaceuticals for 2 days. He describes he started drinking alcohol and that led to ?things getting out of hand.? He states remembering a few things urine there over the last 2 days. He provides a history of prior drug use per reports his last episode was 4 years ago. He denies any thoughts of self-harm or intent on self injury. He denies any recent illness, fevers or chills, known COVID-19 exposures. Denies complaints of headache or dizziness, nasal congestion or sore throat. He has no chest pain and relates history of intermittent right-sided sharp chest pain lasting a few minutes but nothing currently. He does endorse a history of asthma I received prescription for an inhaler from a [facility] and has no regular PCP. He reports using inhaler approximately 3 times per week. He denies current complaints of shortness of breath cough and has no wheezing. He denies epigastric pain, abdominal pain, nausea or vomiting. Cannot recall his last bowel movement. He reports no difficulty urinating. The patient is typically independent in all ADLs. Upon arrival to the ER the patient is afebrile with temperature 98.1?, heart rate of 118, blood pressure 149/95, respiratory rate of 20 with his known oxygen saturation 94% on room air. Chest x-ray was obtained which is unremarkable with no acute cardiopulmonary pathology, a head CT which is also unremarkable. On laboratory analysis the patient has white count of 10.4, hemoglobin of 17.1, hematocrit of 49.8 and platelets of 187. His electrolytes are all within normal limits is a magnesium 2.2. His BUN is 15 and creatinine 0.79. Liver function tests are all within normal limits, his total CK is 109, troponin is negative, TSH is 4.65. Of ABG reveals a pH of 7.30, pCO2 of 56.9, bicarbonate of 28 with base excess of +1. Urinalysis is positive for 1+ protein and negative for ketone s nitrates leukocyte esterase or WBCs. On urinary tox screen the patient is found positive for amphetamine/methamphetamine, ecstasy, benzodiazepines, cocaine, THC. Alcohol is less than 10. In the ER the patient is given normal saline 2 L and administered initial dose of Narcan with transient improvement insert on Narcan infusion. The patient is admitted to the medicine service for toxic encephalopathy with acute respiratory failure. Discharge Providers Provider Date of admission: 02/23/20 19:39 Discharge Date: 02/24/20 Consults: 02/23/20 20:22 Consult to Discharge Planning Routine Comment: 02/23/20 20:24 Consult to Respiratory Therapy Evaluate & Treat Comment: Unknown substance overdose Physician Instructions: Evaluate and treat Discharge provider: Heath Cox DO Summary Hospital Course Discharge Diagnosis: 1. Toxic metabolic encephalopathy, acute, present on admission, active. 2. Polysubstance overdose, acute, present on admission, active. 3. Acute respiratory failure with hypercarbia, uncompensated respiratory acidosis with metabolic alkalosis, acute, present on admission, active. 4. Mild persistent asthma, chronic, stable. Hospital Course: Josafat Juares is a 24-year-old male with past medical history of asthma who was admitted for a toxic metabolic encephalopathy after he was found asleep in his car. He reported lapses in memory over the past 2 days during which time he has been taking multiple substances. Urine tox screen was positive for amphetamines, methamphetamines, ecstasy, benzodiazepines, cocaine, and marijuana. Patient continued to have some slurred speech but this improved rather quickly and with Narcan infusion. He also had some respiratory failure with hypercarbia due to polysubstance overdose. Narcan infusion was ultimately stopped overnight, and by the morning the patient was fully alert and oriented with a GCS of 15. He had no difficulties with speech and was discharged home. Exam Vital Signs (past 8 hours): - 02/24/20 01:00 02/24/20 01:17 02/24/20 02:00 Temperature 97.2 F L Pulse Rate 80 85 75 Respiratory Rate 20 21 24 Blood Pressure 126/62 126/62 135/89 Pulse Oximetry 98 99 99 02/24/20 02:27 02/24/20 03:05 02/24/20 04:00 Temperature Pulse Rate 82 73 92 H Respiratory Rate 25 H 29 H 25 H Blood Pressure 135/89 146/94 H 127/72 Pulse Oximetry 99 100 99 02/24/20 05:27 02/24/20 06:58 Temperature 97.8 F Pulse Rate 94 H 94 H Respiratory Rate 17 Blood Pressure 138/87 Pulse Oximetry 97 Oxygen Delivery Method Room Air Oxygen Flow Rate 0 Narrative Exam Narrative: GENERAL APPEARANCE: Well developed, well nourished, in no acute distress. SKIN: Inspection of the skin reveals no rashes, ulcerations or petechiae. HEENT: Normocephalic atraumatic, extraocular muscles are intact, oropharynx is clear and mucous membranes are moist, neck is supple without adenopathy NECK: Supple and symmetric. There was no thyroid enlargement, and no tenderness, or masses were felt. CHEST: Normal AP diameter and normal contour without any kyphoscoliosis. LUNGS: Auscultation of the lungs revealed no wheezes, rhonchi, or rales. CARDIOVASCULAR: There was a regular rate and rhythm without any murmurs, gallops, rubs. Peripheral pulses were 2+ and symmetric. ABDOMEN: Soft and nontender with normal bowel sounds. No ascites was noted. MUSCULOSKELETAL: There was no tenderness or effusions noted. Muscle strength and tone were normal. EXTREMITIES: No cyanosis, clubbing or edema. NEUROLOGIC: Alert and oriented x 3. Normal affect. Gait was normal. Strength is +5/5 in the Upper Extremities and Lower Extremities Bilaterally. Sensation to touch was normal. Objective Labs Result Diagrams: 02/24/20 04:45 02/24/20 04:45 Labs: Laboratory Results - last 24 hr 02/23/20 02/23/20 02/23/20 14:13 14:13 14:13 WBC 10.4 RBC 5.27 Hgb 17.1 Hct 49.8 MCV 94.6 MCH 32.4 MCHC 34.3 RDW 13.1 Plt Count 187 Neut % (Auto) 60.7 Lymph % (Auto) 27.6 [place] % (Auto) 7.4 Eos % (Auto) 3.8 Baso % (Auto) 0.5 Neut # (Auto) 6300 Lymph # (Auto) 2900 [place] # (Auto) 800 Eos # (Auto) 400 Baso # (Auto) 100 ABG pH ABG pCO2 ABG pO2 ABG HCO3 ABG Total CO2 ABG O2 Saturation ABG Base Excess FiO2 Sodium 138 Potassium 4.3 Chloride 104 Carbon Dioxide 24 BUN 15 Creatinine 0.79 Estimated GFR > 60.0 BUN/Creatinine Ratio 19.0 Glucose 111 H Calcium 9.9 Magnesium 2.2 Total Bilirubin 0.8 AST 38 ALT 34 Alkaline Phosphatase 59 Total Creatine Kinase 109 CK-MB (CK-2) 1.75 CK-MB (CK-2) Rel Index 1.6 Troponin I < 0.012 Total Protein 7.9 Albumin 4.7 Globulin 3.2 Albumin/Globulin Ratio 1.5 TSH 4.65 Urine Color Urine Appearance Urine pH Ur Specific [place] Urine Protein Urine Glucose (UA) Urine Ketones Urine Occult Blood Urine Nitrate Urine Bilirubin Urine Urobilinogen Ur Leukocyte Esterase Urine RBC Urine WBC Urine Bacteria Hyaline Casts Ur Culture Indicated? Nasal Screen MRSA (PCR) Salicylates < 1.0 U Opiates 300ng/mL cut Ur Oxycodone Screen Urine Methadone Screen Acetaminophen < 10 L Ur Barbiturates Screen U Tricyclic Antidepress Ur Phencyclidine Scrn Ur Amphetamines Screen U Methamphetamines Scrn Ur MDMA Scrn (Ecstasy) U Benzodiazepines Scrn Urine Cocaine Screen U Marijuana (THC) Screen Ethyl Alcohol < 10 COVID-19 PCR 02/23/20 02/23/20 02/23/20 14:35 18:01 18:58 WBC RBC Hgb Hct MCV MCH MCHC RDW Plt Count Neut % (Auto) Lymph % (Auto) [place] % (Auto) Eos % (Auto) Baso % (Auto) Neut # (Auto) Lymph # (Auto) [place] # (Auto) Eos # (Auto) Baso # (Auto) ABG pH 7.29 L* 7.30 L ABG pCO2 58.3 H 56.9 H ABG pO2 80 81 ABG HCO3 28 H 28 H ABG Total CO2 30 29 ABG O2 Saturation 94 L 94 L ABG Base Excess 2.0 1.0 FiO2 21 21 Sodium Potassium Chloride Carbon Dioxide BUN Creatinine Estimated GFR BUN/Creatinine Ratio Glucose Calcium Magnesium Total Bilirubin AST ALT Alkaline Phosphatase Total Creatine Kinase CK-MB (CK-2) CK-MB (CK-2) Rel Index Troponin I Total Protein Albumin Globulin Albumin/Globulin Ratio TSH Urine Color Yellow Urine Appearance Clear Urine pH 6.0 Ur Specific [place] 1.025 Urine Protein 1+ H Urine Glucose (UA) Negative Urine Ketones Negative Urine Occult Blood Negative Urine Nitrate Negative Urine Bilirubin Negative Urine Urobilinogen 2.0 H Ur Leukocyte Esterase Negative Urine RBC None seen Urine WBC None seen Urine Bacteria None seen Hyaline Casts 0-1/lpf Ur Culture Indicated? Cult not indicated Nasal Screen MRSA (PCR) Salicylates U Opiates 300ng/mL cut Ur Oxycodone Screen Urine Methadone Screen Acetaminophen Ur Barbiturates Screen U Tricyclic Antidepress Ur Phencyclidine Scrn Ur Amphetamines Screen U Methamphetamines Scrn Ur MDMA Scrn (Ecstasy) U Benzodiazepines Scrn Urine Cocaine Screen U Marijuana (THC) Screen Ethyl Alcohol COVID-19 PCR 02/23/20 02/23/20 02/23/20 18:58 20:55 20:55 WBC RBC Hgb Hct MCV MCH MCHC RDW Plt Count Neut % (Auto) Lymph % (Auto) [place] % (Auto) Eos % (Auto) Baso % (Auto) Neut # (Auto) Lymph # (Auto) [place] # (Auto) Eos # (Auto) Baso # (Auto) ABG pH ABG pCO2 ABG pO2 ABG HCO3 ABG Total CO2 ABG O2 Saturation ABG Base Excess FiO2 Sodium Potassium Chloride Carbon Dioxide BUN Creatinine Estimated GFR BUN/Creatinine Ratio Glucose Calcium Magnesium Total Bilirubin AST ALT Alkaline Phosphatase Total Creatine Kinase CK-MB (CK-2) CK-MB (CK-2) Rel Index Troponin I Total Protein Albumin Globulin Albumin/Globulin Ratio TSH Urine Color Urine Appearance Urine pH Ur Specific [place] Urine Protein Urine Glucose (UA) Urine Ketones Urine Occult Blood Urine Nitrate Urine Bilirubin Urine Urobilinogen Ur Leukocyte Esterase Urine RBC Urine WBC Urine Bacteria Hyaline Casts Ur Culture Indicated? Nasal Screen MRSA (PCR) Negative for mrsa Salicylates U Opiates 300ng/mL cut Negative Ur Oxycodone Screen Negative Urine Methadone Screen Negative Acetaminophen Ur Barbiturates Screen Negative U Tricyclic Antidepress Negative Ur Phencyclidine Scrn Negative Ur Amphetamines Screen Positive H U Methamphetamines Scrn Positive H Ur MDMA Scrn (Ecstasy) Positive H U Benzodiazepines Scrn Positive H Urine Cocaine Screen Positive H U Marijuana (THC) Screen Positive H Ethyl Alcohol COVID-19 PCR Negative 02/24/20 02/24/20 04:45 04:45 WBC 9.0 RBC 5.22 Hgb 16.9 Hct 49.0 MCV 93.8 MCH 32.4 MCHC 34.6 RDW 12.9 Plt Count 171 Neut % (Auto) 60.1 Lymph % (Auto) 25.5 [place] % (Auto) 8.1 Eos % (Auto) 5.8 H Baso % (Auto) 0.5 Neut # (Auto) 5400 Lymph # (Auto) 2300 [place] # (Auto) 700 Eos # (Auto) 500 H Baso # (Auto) 0 ABG pH ABG pCO2 ABG pO2 ABG HCO3 ABG Total CO2 ABG O2 Saturation ABG Base Excess FiO2 Sodium 135 L Potassium 4.2 Chloride 103 Carbon Dioxide 26 BUN 10 Creatinine 0.74 Estimated GFR > 60.0 BUN/Creatinine Ratio 13.5 Glucose 88 Calcium 9.4 Magnesium 2.0 Total Bilirubin AST ALT Alkaline Phosphatase Total Creatine Kinase CK-MB (CK-2) CK-MB (CK-2) Rel Index Troponin I Total Protein Albumin Globulin Albumin/Globulin Ratio TSH Urine Color Urine Appearance Urine pH Ur Specific [place] Urine Protein Urine Glucose (UA) Urine Ketones Urine Occult Blood Urine Nitrate Urine Bilirubin Urine Urobilinogen Ur Leukocyte Esterase Urine RBC Urine WBC Urine Bacteria Hyaline Casts Ur Culture Indicated? Nasal Screen MRSA (PCR) Salicylates U Opiates 300ng/mL cut Ur Oxycodone Screen Urine Methadone Screen Acetaminophen Ur Barbiturates Screen U Tricyclic Antidepress Ur Phencyclidine Scrn Ur Amphetamines Screen U Methamphetamines Scrn Ur MDMA Scrn (Ecstasy) U Benzodiazepines Scrn Urine Cocaine Screen U Marijuana (THC) Screen Ethyl Alcohol COVID-19 PCR Discharge Plan Discharge Plan Patient Disposition: Home Discharge comment: You were admitted to the hospital with confusion. This was likely due to substances that you ingested. You briefly required some medication to counter act the substances. You improved with time. Please follow-up with your primary care provider as previously scheduled. Discharge orders & Medications Prescriptions: Continued albuterol sulfate 90 mcg/actuation Hfa Aerosol Inhaler 2 puff INHALATION Q4-6H PRN (Reason: Shortness Of Breath Or Wheezing) RF: 0 Diet/Activity/Treatments Diet: Diet as Tolerated Activity: As tolerated Visit Report/Discharge Packet Visit Report Forms: Patient Portal/API, Stroke Signs & Symptoms Discharges patient from system. Discharge Date/Time: 02/24/20 09:22 Quality VTE Deep Vein Thrombosis/Pulmonary Embolism Present on Admission: No
--- NOTE | 2020-02-24 09:15 | PC.NURSE ---
pt compliant with care offered- narcan gtt turned to off and pt taking small amount of po and denies nausea IV REMOVED AND REVIEWED DISCHARGE ORDERS AND FOLLOW UP PLAN- DISCHARGED TO HOME FROM [facility]
== END 2020-02-24 09:22 | disposition home or self-care (01) ==
LOC: ED 19:36 → ICU 02-24 08:36 → AC 02-27 08:09 → ICU 02-28 15:49
PROVIDERS: Admitting Provider Nurse Practitioner Adult Health; Emergency Provider Emergency Medicine; Visit Provider Nurse Practitioner Adult Health
DX: T43.621A Poisoning by amphetamines, accidental (unintentional), initial encounter (principal); T43.641A Poisoning by ecstasy, accidental (unintentional), initial encounter; T42.4X1A Poisoning by benzodiazepines, accidental (unintentional), initial encounter; T40.5X1A Poisoning by cocaine, accidental (unintentional), initial encounter; T40.7X1A Poisoning by cannabis (derivatives), accidental (unintentional), initial encounter; G92 Toxic encephalopathy; E87.4 Mixed disorder of acid-base balance; J45.30 Mild persistent asthma, uncomplicated; F17.210 Nicotine dependence, cigarettes, uncomplicated; Z11.59 Encounter for screening for other viral diseases
CPT/HCPCS: 36415; 36600; 70450; 71045; 80048; 80053; 80305; 80320; 80329; 81001; 82550; 82553; 82805; 83735; 84443; 84484; 85025; 87635; 87797; 93005; 94762; 96365; 96366; 96376; 99285; G0378; A9270; G0480; J1644; J2310